=== PATIENT | female | born 1955 | race Caucasian/White ===

== ENCOUNTER 2017-11-27 08:30 | Inpatient (IN) | payer BC, OTHER ==
[2017-12-23] MEDS ORDERED: Sodium Chloride 0.9% 100 ML ONE (07:21)
[2017-12-23] MEDS ORDERED: CEFAZOLIN/Water 2 GM/20 ML SYRINGE ONE (07:21)
[2017-12-23] MEDS ORDERED: Midazolam HCl 2 mg/2 ml Vial ONE (07:22)
[2017-12-23] MEDS ORDERED: Fentanyl 100 MCG/2 ML VIAL ONE ×4 (07:22→11:07)
[2017-12-23] MEDS ORDERED: traMADol HCl 50 MG TAB PO PRN ×3 (11:00→11:03)
[2017-12-23] MEDS ORDERED: Zolpidem Tartrate 5 MG TAB PO PRN ×3 (11:00→12:35)
[2017-12-23] MEDS ORDERED: Fentanyl 100 MCG/2 ML VIAL SLOW IVP PRN ×2 (11:00)
[2017-12-23] MEDS ORDERED: diphenhydrAMINE 25 MG CAP PO PRN ×2 (11:00→12:35)
[2017-12-23] MEDS ORDERED: Promethazine HCl 25 MG/ML VIAL IM PRN ×3 (11:00→12:35)
[2017-12-23] MEDS ORDERED: Ondansetron HCl/PF 4 MG/2 ML Vial IVP PRN ×3 (11:00→12:35)
[2017-12-23] MEDS ORDERED: Sodium Chloride 0.9% 1,000 ML IV SCH (11:00)
[2017-12-23] MEDS ORDERED: HYDROcodone/Acetaminophen 5/325 mg Tablet PO PRN ×2 (11:03)
[2017-12-23] MEDS ORDERED: Ropivacaine HCl/PF 250 ML in Premix Bag 1 BAG NERVE BLCK SCH (11:03)
[2017-12-23] MEDS ORDERED: Fentanyl 100 MCG/2 ML VIAL IV PRN (11:03)
[2017-12-23] MEDS ORDERED: Ketorolac Tromethamine 30 MG/ML VIAL ONE (11:07)
[2017-12-23] MEDS ORDERED: HYDROmorphone 2 MG/ML VIAL ONE (11:21)
--- NOTE | 2017-12-23 11:23 | OP ---
DATE OF PROCEDURE: 12/23/2017 PREOPERATIVE DIAGNOSIS: End-stage tricompartmental osteoarthritis, right knee. POSTOPERATIVE DIAGNOSIS: End-stage tricompartmental osteoarthritis, right knee. OPERATIVE PROCEDURE: Cemented cruciate-sparing computer-assisted navigated right total knee arthropl ro[place]. SURGEON: Rafael Desai M.D. COMMERCIAL SINGER: Larry Peng PA-C. ANESTHESIA: General via laryngeal mask airway augmented with indwelling adductor canal block with si ngle shot sciatic block. COMPONENTS USED: [employer] Tri[employer]lon primary cemented cruciate-sparing size 4 femoral comp onent with a primary cemented, size 3 tibial baseplate, 9 mm polyethylene fixed bearing insert, and S 27 patellar button. TOURNIQUET TIME: 59 minutes at 300 mmHg. ESTIMATED BLOOD LOSS: Less than 100 mL. FINDINGS: End-stage severe degenerative tricompartmental disease, bone on bone arthrosis, periarticu lar osteophyte formation, large serous effusion, hypertrophic beefy red synovium. DRAINS: None. SPECIMENS: None. COMPLICATIONS: None. COUNTS: Correct. INDICATIONS FOR SURGERY: Ms. Guerrier is a 62-year-old female, who has had progressive right knee pain and without standing and walking for the last 10-12 years. She has failed conservative management an d elected to proceed with total knee arthroplasty as a definitive treatment of her pain. PROCEDURE IN DETAIL: After informed consent was obtained in the preoperative holding area. The mark ent was taken to the operative suite where general anesthesia was induced. Once adequate level of ge neral anesthesia was obtained, the patient was positioned and a well-padded tourniquet was placed ramonita und the right proximal thigh. The right lower extremity was then prepped and draped in the usual arslan rile fashion. Prior to exsanguination, a time out was called and all members of the surgical team ag gisela upon site, surgeon, and patient. The extremity was then exsanguinated and the tourniquet was ra ised. A midline longitudinal incision was then made directly over the patella extending two fingerbr eadths above the superior pole of the patella and two fingerbreadths inferior to the inferior patella r pole of the patella. Deeper subcutaneous layers were dissected sharply and local bleeding was cont rolled with Bovie electrocautery. A quad tendon longitudinal split was then made sharply and a media n parapatellar arthrotomy was carried out both sharp and with Bovie electrocautery, carried down to o ne fingerbreadth medial to the tibial tubercle. The knee was then placed into flexion and the patell a was everted nicely, and a copious fat pad ectomy was performed allowing for greater exposure of the tibia. The computer-assisted distal femoral fiducial was then placed and pinned firmly, and the dis andrew femoral cutting guide was pinned firmly into place. The oscillating saw was then used to remove the appropriate amount of bone. The 4-in-1 cutting block was then placed on the distal femur and the oscillating saw was used to remove the appropriate amount of bone off of the anterior, posterior, an d chamfer cuts. After completion of the chamfer cuts, the box-cutting guide was placed, malleted fir mly into place and pinned securely, and an osteotome was used to make the distal cut and the oscillat ing saw was then used to make the medial and lateral box cuts. This came out quite nicely and was re moved with Bovie electrocautery, and the oscillating saw was then used to broaden the lateral medial conn of the box cut. After completion of bone cuts, the anterior cruciate ligament was resected sha rply and the posterior cruciate ligament retractor was placed and the tibia was subluxed for better e xposure. Partial meniscectomies were carried out, and the tibial computer-assisted fiducial was pinn ed, and the cutting guide was placed. Oscillating saw was then used to remove the bone with Hohmann retractors used to take care and protect the collateral ligaments. After the tibial resection was pe rformed, a laminar senior loan processor was placed in between the freshened bone cuts. The knee placed at 90 deg lima and further bilateral meniscectomies were carried out, and the curved osteotome and curettage wa s used to remove any excess bone spurs in the posterior compartment. The trial femoral component, ti bial baseplate were placed with the appropriate polyethylene trial insert with an appropriate polyeth ylene spacer and patellar button. The knee was taken through full range of motion with flexion and e xtension from 0-90 degrees and patellar broach squarely in the trochlea without any squinting or subl uxation noted. The knee was also stable to varus and valgus stressing at 0, 15, 45, and 90 degrees o f flexion. The drawer was negative. All trial components were then removed and the keel punch was u sed to provide the appropriate defect in the tibia with a mallet. The freshened bone cuts were copio usly irrigated with pulsatile lavage of about 1-1/2 liters to remove all excess debris. The freshene d bone cuts were then dried and with suction and lap sponge. The knee was placed in flexion and retr actors were placed to provide access to all bone cuts. Tobramycin impregnated methyl methacrylate ce ment was then placed on the freshened bone cuts and implants which were malleted firmly into place. Curettage and [place] elevators were used to remove any excess bone cement. The knee was placed into f ull extension and the patellar button was placed under compression, and the cement was allowed to cur e. Once completed, the components were again taken through full range of motion and copious irrigati on of the knee was carried out with another liter of normal saline. All components were inspected fu lly with full range of motion and varus and valgus stressing. There was no laxity noted and full exte nsion was observed clinically. Primary closure was accomplished with #2 interrupted Vicryl stitch of the arthrotomy defect. This was oversewn with a #2 running Quill barbed stitch. The subcutaneous l obdulio was then closed with a running 0 barbed Monocryl stitch and skin closure accomplished with a run prem subcuticular 3-0 Monocryl barbed Quill stitch and augmented with cement on the skin. Tourniquet was lowered. Good spontaneous return of distal pulses was noted clinically and a sterile dressing w as applied to the incision. The procedure was terminated without any complications. The patient was awakened in the operative suite and taken to the recovery room in stable condition.
[2017-12-23] MEDS ORDERED: hydrALAZINE 20 MG/ML VIAL ONE (12:22)
[2017-12-23] MEDS ORDERED: Ropivacaine 0.2% 550 ML 550 ML NERVE BLCK SCH (12:30)
[2017-12-23] MEDS ORDERED: fentaNYL Citrate/PF 2,000 MCG in Sodium Chloride 0.9% 60 ML IV PRN (12:35)
[2017-12-23] MEDS ORDERED: diphenhydrAMINE 50 MG/ML VIAL IM/IV PRN (12:35)
[2017-12-23] MEDS ORDERED: Naloxone HCl 0.4 mg/ml Vial IV PRN (12:35)
[2017-12-23] MEDS ORDERED: Bupivacaine 0.25% HCL 30 ML VIAL ONE (13:09)
[2017-12-23] MEDS ORDERED: Ropivacaine 0.5% HCl/PF (150 MG/30 ML VIAL) ONE (13:09)
--- NOTE | 2017-12-23 13:16 | RAD ---
TWO VIEWS RIGHT KNEE: Date: 12-23-17 History: Post-operative right total knee. Comparison: None available. FINDINGS: There are post-surgical changes related to right total knee prosthesis. No hardware complication is s een. Subcutaneous emphysema seen and likely related to recent post-surgical change. IMPRESSION: Post-surgical change related to recent right total knee replacement. POS: MARISOL
[2017-12-23] MEDS: CEFAZOLIN/Water 2 GM/20 ML SYRINGE SLOW IVP SCH ×2 (16:27→22:12)
[2017-12-23] MEDS: Acetaminophen 1,000 MG in Premix Bag 1 BAG IVPB SCH (17:03)
--- NOTE | 2017-12-23 19:06 | PDOC.PN ---
- Subjective Encounter Start Date: 12/23/17 Encounter Start Time: 18:00 Subjective: no c/o sob or chest pain -: has mild pain in right knee, is still numb though - Objective MAR Reviewed: Yes Vital Signs & Weight: Weight Weight 188 lb Phys Exam - Physical Examination HEENT: PERRLA dry mucosa Neck: no JVD, supple Respiratory: no rales, no rhonchi Cardiovascular: RRR, no significant murmur Gastrointestinal: soft, non-tender, positive bowel sounds Musculoskeletal: no edema, pulses present right knee in dressing Neurological: non-focal, moves all 4 limbs Psychiatric: normal affect, A&O x 3 Dx/Plan (1) Status post total knee replacement, right Code(s): Z96.651 - PRESENCE OF RIGHT ARTIFICIAL KNEE JOINT Status: Acute Comment: 12/23/2017 (2) HTN (hypertension) Code(s): I10 - ESSENTIAL (PRIMARY) HYPERTENSION Status: Chronic Qualifiers: Hypertension type: essential hypertension Qualified Code(s): I10 - Essential (primary) hypertension (3) Obesity (BMI 30-39.9) Code(s): E66.9 - OBESITY, UNSPECIFIED Status: Chronic (4) CAD (coronary artery disease) Code(s): I25.10 - ATHSCL HEART DISEASE OF [place] CORONARY ARTERY W/O ANG PCTRS Status: Suspected Qualifiers: Coronary Disease-Associated Artery/Lesion type: [place] artery [place] vs. transplanted heart: [place] heart Associated angina: without angina Qualified Code(s): I25.10 - Atherosclerotic heart disease of [place] coronary artery without angina pectoris (5) Depression Code(s): F32.9 - MAJOR DEPRESSIVE DISORDER, SINGLE EPISODE, UNSPECIFIED Status : Chronic Qualifiers: Depression Type: unspecified Qualified Code(s): F32.9 - Major depressive disorder, single episode, unspecified - Plan on asp bid for dvt prophylaxis -: continue celexa, imdur, lisinopril, iron -: on toradol, fentanyl prn for pain and ropivacaine nr block -: labs in am, will f/u * . Review of Systems - Medications/Allergies Allergies/Adverse Reactions: Allergies Allergy/AdvReac Type Severity Reaction Status Date / Time No Known Allergies Allergy Verified 12/11/17 08:35 Medications: Current Medications Acetaminophen (Tylenol) 650 mg PO Q4H PRN PRN Reason: Headache/Fever or Pain Aspirin (Aspirin) 325 mg PO BID [facility] Cefazolin Sodium (Ancef) 2 gm SLOW IVP Q8HR [facility] Stop: 12/23/17 22:01 Last Admin: 12/23/17 16:27 Dose: 2 gm Citalopram Hydrobromide (Celexa) 40 mg PO DAILY [facility] Diphenhydramine HCl (Benadryl) 25 mg IM/IV Q3H PRN PRN Reason: Itching Diphenhydramine HCl (Benadryl) 25 mg PO Q3H PRN PRN Reason: Itching Ferrous Gluconate (Fergon) 324 mg PO BID-WM [facility] Acetaminophen 1,000 mg/ Device 100 mls @ 400 mls/hr IVPB NOW [facility] Stop: 12/24/17 11:01 Last Admin: 12/23/17 17:03 Dose: Not Given Sodium Chloride (Normal Saline 0.9%) 1,000 mls @ 0 mls/hr IV .Q0M [facility] Ropivacaine (Ropivacaine 0.2% 550 Ml) 550 mls @ 0 mls/hr NERVE BLCK INF [facility] Fentanyl Citrate 2,000 mcg/ (Sodium Chloride) 100 mls @ 0 mls/hr IV INF PRN PRN Reason: Pain Iron/Minerals/Multivitamins (Theragran M) 1 tab PO DAILY [facility] Isosorbide Mononitrate (Imdur Er) 30 mg PO DAILY [facility] Ketorolac Tromethamine (Toradol) 30 mg IVP Q6H PRN PRN Reason: Moderate Pain 4-6 Stop: 12/26/17 12:36 Lisinopril (Zestril) 10 mg PO DAILY [facility] Naloxone HCl (Narcan) 0.2 mg IV Q5MIN PRN PRN Reason: RR <8 or pt obtun/unarousable Ondansetron HCl (Zofran) 4 mg IVP Q6H PRN PRN Reason: Nausea/Vomiting Promethazine HCl (Phenergan) 12.5 mg IM Q4H PRN PRN Reason: Nausea/Vomiting Senna/Docusate Sodium (Senokot S) 2 tab PO BID [facility] Simvastatin (Zocor) 20 mg PO HS [facility] Sodium Chloride (Flush - Normal Saline) 10 ml IVF Q12HR [facility] Sodium Chloride (Flush - Normal Saline) 10 ml IVF PRN PRN PRN Reason: Saline Flush Zolpidem Tartrate (Ambien) 5 mg PO HSPRN PRN PRN Reason: Insomnia
[2017-12-23 19:29] VITALS: BMI 36.3
[2017-12-23] MEDS: Simvastatin 20 MG TAB PO SCH (20:39)
[2017-12-23] MEDS: Aspirin 325 MG TAB PO SCH (20:39)
--- NOTE | 2017-12-23 23:24 | CON ---
DATE OF CONSULTATION: 12/23/2017 CHIEF COMPLAINT: 1. Status post right knee and right knee replacement today. 2. Hypertension. 3. Consult requested for the medical management of the patient's history of hypertension. HISTORY OF PRESENT ILLNESS: This is a 62-year-old female who was electively admitted for right knee total replacement. The patient is now status post right knee replacement today. We were consulted f or the management of patient's history of hypertension. PAST MEDICAL HISTORY: Right knee arthritis, hypertension. PAST SURGICAL HISTORY: Not significant except for today's right total knee replacement. ALLERGIES: NKDA. REVIEW OF SYSTEMS: Constitutional: Complaints of right knee pain, but patient just walked with the physical therapist today from the bed to the door. HEENT: No complaints of eye pain or eye discharg e. No complaints of nose or nasal discharge, no sore throat, no ear pain or ear discharge. Cardiova scular: No complaints of chest pain or palpitation. Respiratory: No complaints of shortness of emiliana ath, wheezes or rales. Musculoskeletal: +4 right knee pain status post surgery. Neurologic: No co mplaints of any focal deficits. No complaints of motor or sensory loss. PHYSICAL EXAMINATION: VITAL SIGNS: Blood pressure 140/78, heart rate 76, respiratory rate 18, pulse ox within normal limit s on room air. CONSTITUTIONAL: Vital signs are reviewed. Patient is complaining of right knee pain, but well contr olled with the pain medication. HEENT: Normocephalic, atraumatic head. Eye examination is within normal limits. Pupil is equally r ound and reactive to light. Extraocular muscles are within normal limits. External ear and canal wi th tympanic membranes within normal limits. There is no discharge. Trachea is midline. There is no cervical lymphadenopathy. No tenderness and range of motions of the neck is intact. respiratory and chest. Respiratory: Respiratory and chest examination is within normal limits. Goo d air entry bilaterally. No wheezes or rales. Cardiovascular: Regular rate and rhythm. No murmurs . Musculoskeletal: Right knee, status post surgery covered with dressing. Neurologic: Cranial ner ves intact. No focal deficit noticed. Motor strength is within normal limits. Sensation is within normal limits. Skin: Within normal limits with no rashes or discoloration. ASSESSMENT AND PLAN: 1. Hypertension. Restart patient's home medications, lisinopril and isosorbide nitrate. 2. Hyperlipidemia. Restart patient's simvastatin. 3. Status post right knee replacement, pain control and continue with PT according to surgeon's advi ce. 4. Symptomatic treatment as required.
[2017-12-24 07:24] LABS: #Lymphocytes 1.6 thou/uL (1.20-3.40); #Monocytes 1.3 thou/uL (0.11-0.59); #Neutrophils 7.3 thou/uL (1.40-6.50); %Basophils 0.1 % (0.0-1.0); %Eosinophils 0.3 % (0.0-10.0); %Lymphocytes 15.9 % (21.0-51.0); %Monocytes 12.9 % (0.0-10.0); %Neutrophils 70.8 % (42.0-75.0); Hemoglobin 12.5 g/dL (12.0-16.0); Mean Corpuscular HGB CONC 34.2 g/dL (32.0-36.0); Mean Corpuscular Hemoglobin 29.7 pg (27.0-31.0); Mean Corpuscular Volume 86.9 fL (78.0-98.0); Mean Platelet Volume 7.1 fL (7.4-10.4); Platelet Count 229 thou/uL (130-400); RBC Distribution Width 12.9 % (11.5-14.5); Red Blood Cell (RBC) Count 4.21 mill/uL (4.20-5.40); White Blood Cell (WBC) Count 10.3 thou/uL (4.8-10.8)
[2017-12-24] MEDS: Lisinopril 10 MG TAB PO SCH (07:38)
[2017-12-24] MEDS: Ferrous Gluconate 324 MG TAB PO SCH ×2 (07:47→18:57)
[2017-12-24] MEDS: Aspirin 325 MG TAB PO SCH ×2 (07:47→21:02)
[2017-12-24] MEDS: Citalopram 20 MG TAB PO SCH (07:47)
[2017-12-24] MEDS: Ketorolac Tromethamine 30 MG/ML VIAL IVP PRN ×2 (07:48→16:10)
[2017-12-24] MEDS: Senokot S 8.6-50 MG TAB PO SCH ×2 (07:48→21:03)
[2017-12-24] MEDS: Multivitamin W/ Minerals 1 TAB PO SCH (07:48)
[2017-12-24] MEDS: Acetaminophen 325 MG TAB PO PRN ×2 (07:55→15:18)
[2017-12-24] MEDS ORDERED: fentaNYL Citrate/PF 2,000 MCG in Sodium Chloride 0.9% 60 ML IV PRN (11:18)
--- NOTE | 2017-12-24 11:34 | PDOC.PN ---
- Subjective Encounter Start Date: 12/24/17 Encounter Start Time: 09:00 Subjective: no sob or chest pain -: has pain in right knee -: ambulated around 40ft yesterday post op - Objective MAR Reviewed: Yes Vital Signs & Weight: Vital Signs (12 hours) Temp Pulse Resp BP Pulse Ox 12/24/17 07:38 98.5 F 85 14 179/109 H 100 12/24/17 03:51 98.2 F 81 16 174/102 H 98 12/23/17 23:46 97.8 F 88 20 158/89 H 97 Weight Weight 180 lb I&O: 12/23/17 12/24/17 12/25/17 06:59 06:59 06:59 Intake Total 810 Output Total 1250 Balance -440 Result Diagrams: 12/24/17 07:14 Phys Exam - Physical Examination HEENT: PERRLA, moist MMs Neck: no JVD, supple Respiratory: no wheezing, no rales Cardiovascular: RRR, no significant murmur Gastrointestinal: soft, non-tender, positive bowel sounds Musculoskeletal: pulses present Neurological: non-focal, moves all 4 limbs Psychiatric: normal affect, A&O x 3 Dx/Plan (1) Status post total knee replacement, right Code(s): Z96.651 - PRESENCE OF RIGHT ARTIFICIAL KNEE JOINT Status: Acute Comment: 12/23/2017 (2) HTN (hypertension) Code(s): I10 - ESSENTIAL (PRIMARY) HYPERTENSION Status: Chronic Qualifiers: Hypertension type: essential hypertension Qualified Code(s): I10 - Essential (primary) hypertension (3) Obesity (BMI 30-39.9) Code(s): E66.9 - OBESITY, UNSPECIFIED Status: Chronic (4) CAD (coronary artery disease) Code(s): I25.10 - ATHSCL HEART DISEASE OF [place] CORONARY ARTERY W/O ANG PCTRS Status: Suspected Qualifiers: Coronary Disease-Associated Artery/Lesion type: [place] artery [place] vs. transplanted heart: [place] heart Associated angina: without angina Qualified Code(s): I25.10 - Atherosclerotic heart disease of [place] coronary artery without angina pectoris (5) Depression Code(s): F32.9 - MAJOR DEPRESSIVE DISORDER, SINGLE EPISODE, UNSPECIFIED Status : Chronic Qualifiers: Depression Type: unspecified Qualified Code(s): F32.9 - Major depressive disorder, single episode, unspecified - Plan hemostable -: on asp bid, lisinopril, oral iron, celexa and imdur -: fentanyl, toradol prn -: ambulate per ortho advice -: will sign off, please recall prn * . Review of Systems - Medications/Allergies Allergies/Adverse Reactions: Allergies Allergy/AdvReac Type Severity Reaction Status Date / Time No Known Allergies Allergy Verified 12/11/17 08:35 Medications: Current Medications Acetaminophen (Tylenol) 650 mg PO Q4H PRN PRN Reason: Headache/Fever or Pain Last Admin: 12/24/17 07:55 Dose: 650 mg Aspirin (Aspirin) 325 mg PO BID [facility] Last Admin: 12/24/17 07:47 Dose: 325 mg Citalopram Hydrobromide (Celexa) 40 mg PO DAILY [facility] Last Admin: 12/24/17 07:47 Dose: 40 mg Diphenhydramine HCl (Benadryl) 25 mg IM/IV Q3H PRN PRN Reason: Itching Diphenhydramine HCl (Benadryl) 25 mg PO Q3H PRN PRN Reason: Itching Ferrous Gluconate (Fergon) 324 mg PO BID-WM [facility] Last Admin: 12/24/17 07:47 Dose: 324 mg Sodium Chloride (Normal Saline 0.9%) 1,000 mls @ 0 mls/hr IV .Q0M [facility] Ropivacaine (Ropivacaine 0.2% 550 Ml) 550 mls @ 0 mls/hr NERVE BLCK INF [facility] Fentanyl Citrate 2,000 mcg/ (Sodium Chloride) 100 mls @ 0 mls/hr IV INF PRN PRN Reason: Pain Iron/Minerals/Multivitamins (Theragran M) 1 tab PO DAILY [facility] Last Admin: 12/24/17 07:48 Dose: 1 tab Isosorbide Mononitrate (Imdur Er) 30 mg PO DAILY [facility] Last Admin: 12/24/17 07:47 Dose: 30 mg Ketorolac Tromethamine (Toradol) 30 mg IVP Q6H PRN PRN Reason: Moderate Pain 4-6 Stop: 12/26/17 12:36 Last Admin: 12/24/17 07:48 Dose: 30 mg Lisinopril (Zestril) 10 mg PO DAILY [facility] Last Admin: 12/24/17 07:38 Dose: 10 mg Morphine Sulfate (Ms Contin) 30 mg PO Q12HR [facility] Naloxone HCl (Narcan) 0.2 mg IV Q5MIN PRN PRN Reason: RR <8 or pt obtun/unarousable Ondansetron HCl (Zofran) 4 mg IVP Q6H PRN PRN Reason: Nausea/Vomiting Promethazine HCl (Phenergan) 12.5 mg IM Q4H PRN PRN Reason: Nausea/Vomiting Senna/Docusate Sodium (Senokot S) 2 tab PO BID [facility] Last Admin: 12/24/17 07:48 Dose: 2 tab Simvastatin (Zocor) 20 mg PO HS [facility] Last Admin: 12/23/17 20:39 Dose: 20 mg Sodium Chloride (Flush - Normal Saline) 10 ml IVF Q12HR [facility] Last Admin: 12/24/17 10:31 Dose: Not Given Sodium Chloride (Flush - Normal Saline) 10 ml IVF PRN PRN PRN Reason: Saline Flush Zolpidem Tartrate (Ambien) 5 mg PO HSPRN PRN PRN Reason: Insomnia
--- NOTE | 2017-12-24 11:36 | PRG ---
DATE OF SERVICE: 12/24/2017 SUBJECTIVE: Chey is a 62-year-old female who is postop day #1 from right total knee arthroplasty. She is uncomfortable this morning, but she is ready for therapy. She is alert. OBJECTIVE: VITAL SIGNS: Temperature 98.5, pulse 85, respiratory rate 14 and unlabored, O2 saturations 100% on r oom air, blood pressure is little high at 179/109. I will check on her blood pressure medications. GENERAL: She is alert, oriented to person, place, time, and situation. Nonfocal and appropriate wit h examiner. EXTREMITIES: Incision is clean without strikethrough. ASSESSMENT: A 62-year-old female postop day #1 right total knee arthroplasty. PLAN: 1. Continue current care. Blood pressure control, I think it has more to do with pain, but we will see. I will give consideration to clonidine, defer to medical management for this. 2. Probable home discharge tomorrow. She has a strong family support unit.
[2017-12-24] MEDS: Acetaminophen 1,000 MG in Premix Bag 1 BAG IVPB SCH (12:37)
[2017-12-24] MEDS: Morphine ER 30 MG TAB PO SCH (21:02)
[2017-12-24] MEDS: Simvastatin 20 MG TAB PO SCH (21:03)
--- NOTE | 2017-12-24 21:59 | PDOC.PN ---
- Subjective Encounter Start Date: 12/24/17 Encounter Start Time: 12:00 - Objective Vital Signs & Weight: Vital Signs (12 hours) Temp Pulse Resp BP BP Pulse Ox 12/24/17 21:02 96 12/24/17 21:01 99.2 F 98 22 H 182/90 H 96 12/24/17 15:48 98.7 F 92 24 H 177/91 H 98 12/24/17 11:45 98.0 F 75 16 137/80 99 Weight Weight 180 lb I&O: 12/23/17 12/24/17 12/25/17 06:59 06:59 06:59 Intake Total 810 Output Total 1250 Balance -440 Result Diagrams: 12/24/17 07:14 Dx/Plan - Plan * . Review of Systems - Medications/Allergies Allergies/Adverse Reactions: Allergies Allergy/AdvReac Type Severity Reaction Status Date / Time No Known Allergies Allergy Verified 12/11/17 08:35 Medications: Current Medications Acetaminophen (Tylenol) 650 mg PO Q4H PRN PRN Reason: Headache/Fever or Pain Last Admin: 12/24/17 15:18 Dose: 650 mg Aspirin (Aspirin) 325 mg PO BID [facility] Last Admin: 12/24/17 21:02 Dose: 325 mg Citalopram Hydrobromide (Celexa) 40 mg PO DAILY [facility] Last Admin: 12/24/17 07:47 Dose: 40 mg Diphenhydramine HCl (Benadryl) 25 mg IM/IV Q3H PRN PRN Reason: Itching Diphenhydramine HCl (Benadryl) 25 mg PO Q3H PRN PRN Reason: Itching Ferrous Gluconate (Fergon) 324 mg [facility] BID[facility] Last Admin: 12/24/17 18:57 Dose: Not Given Sodium Chloride (Normal Saline 0.9%) 1,000 mls @ 0 mls/hr IV .Q0M [facility] Ropivacaine (Ropivacaine 0.2% 550 Ml) 550 mls @ 0 mls/hr NERVE BLCK INF [facility] Fentanyl Citrate 2,000 mcg/ (Sodium Chloride) 100 mls @ 0 mls/hr IV INF PRN PRN Reason: Pain Last Admin: 12/24/17 16:21 Dose: 100 mls Iron/Minerals/Multivitamins (Theragran M) 1 tab PO DAILY [facility] Last Admin: 12/24/17 07:48 Dose: 1 tab Isosorbide Mononitrate (Imdur Er) 30 mg PO DAILY [facility] Last Admin: 12/24/17 07:47 Dose: 30 mg Ketorolac Tromethamine (Toradol) 30 mg IVP Q6H PRN PRN Reason: Moderate Pain 4-6 Stop: 12/26/17 12:36 Last Admin: 12/24/17 16:10 Dose: 30 mg Lisinopril (Zestril) 10 mg PO DAILY [facility] Last Admin: 12/24/17 07:38 Dose: 10 mg Morphine Sulfate (Ms Contin) 30 mg PO Q12HR [facility] Last Admin: 12/24/17 21:02 Dose: 30 mg Naloxone HCl (Narcan) 0.2 mg IV Q5MIN PRN PRN Reason: RR <8 or pt obtun/unarousable Ondansetron HCl (Zofran) 4 mg IVP Q6H PRN PRN Reason: Nausea/Vomiting Promethazine HCl (Phenergan) 12.5 mg IM Q4H PRN PRN Reason: Nausea/Vomiting Senna/Docusate Sodium (Senokot S) 2 tab PO BID [facility] Last Admin: 12/24/17 21:03 Dose: 2 tab Simvastatin (Zocor) 20 mg PO HS [facility] Last Admin: 12/24/17 21:03 Dose: 20 mg Sodium Chloride (Flush - Normal Saline) 10 ml IVF Q12HR [facility] Last Admin: 12/24/17 21:14 Dose: Not Given Sodium Chloride (Flush - Normal Saline) 10 ml IVF PRN PRN PRN Reason: Saline Flush Zolpidem Tartrate (Ambien) 5 mg PO HSPRN PRN PRN Reason: Insomnia
[2017-12-24] MEDS ORDERED: hydrALAZINE 20 MG/ML VIAL SLOW IVP PRN (22:33)
[2017-12-25] MEDS: Acetaminophen 325 MG TAB PO PRN ×2 (03:03→16:19)
[2017-12-25] MEDS: Ketorolac Tromethamine 30 MG/ML VIAL IVP PRN ×2 (03:03→16:20)
[2017-12-25] MEDS: Multivitamin W/ Minerals 1 TAB PO SCH (09:28)
[2017-12-25] MEDS: Ferrous Gluconate 324 MG TAB PO SCH ×2 (09:28→17:27)
[2017-12-25] MEDS: Aspirin 325 MG TAB PO SCH ×2 (09:28→21:34)
[2017-12-25] MEDS: Senokot S 8.6-50 MG TAB PO SCH ×2 (09:29→21:34)
[2017-12-25] MEDS: Citalopram 20 MG TAB PO SCH (09:29)
[2017-12-25] MEDS: Lisinopril 10 MG TAB PO SCH (09:29)
[2017-12-25] MEDS: Morphine ER 30 MG TAB PO SCH ×2 (09:37→21:34)
--- NOTE | 2017-12-25 10:20 | PDOC.PN ---
- Subjective Encounter Start Date: 12/25/17 Encounter Start Time: 09:00 Subjective: feels better, pain is getting controlled on meds -: has ambulated 160ft with PT post op -: no sob/chest pain/palp - Objective MAR Reviewed: Yes Vital Signs & Weight: Vital Signs (12 hours) Temp Pulse Resp BP BP Pulse Ox 12/25/17 09:29 175/81 H 12/25/17 08:00 100 12/25/17 07:40 98.1 F 88 18 175/81 H 100 12/25/17 03:06 99.2 F 103 H 24 H 147/75 H 97 12/24/17 23:45 99.2 F 102 H 22 H 149/80 H 99 12/24/17 22:41 93 185/98 H Weight Weight 180 lb I&O: 12/24/17 12/25/17 12/26/17 06:59 06:59 06:59 Intake Total 810 Output Total 1250 3350 Balance -440 -3350 Result Diagrams: 12/24/17 07:14 Phys Exam - Physical Examination HEENT: PERRLA, moist MMs Neck: no JVD, supple Respiratory: no wheezing, no rales Cardiovascular: RRR, no significant murmur Gastrointestinal: soft, non-tender, positive bowel sounds Musculoskeletal: no edema, pulses present Neurological: non-focal, moves all 4 limbs Psychiatric: normal affect, A&O x 3 Dx/Plan (1) Status post total knee replacement, right Code(s): Z96.651 - PRESENCE OF RIGHT ARTIFICIAL KNEE JOINT Status: Acute Comment: 12/23/2017 (2) HTN (hypertension) Code(s): I10 - ESSENTIAL (PRIMARY) HYPERTENSION Status: Chronic Qualifiers: Hypertension type: essential hypertension Qualified Code(s): I10 - Essential (primary) hypertension (3) Obesity (BMI 30-39.9) Code(s): E66.9 - OBESITY, UNSPECIFIED Status: Chronic (4) CAD (coronary artery disease) Code(s): I25.10 - ATHSCL HEART DISEASE OF [place] CORONARY ARTERY W/O ANG PCTRS Status: Suspected Qualifiers: Coronary Disease-Associated Artery/Lesion type: [place] artery Circle vs. transplanted heart: [place] heart Associated angina: without angina Qualified Code(s): I25.10 - Atherosclerotic heart disease of [place] coronary artery without angina pectoris (5) Depression Code(s): F32.9 - MAJOR DEPRESSIVE DISORDER, SINGLE EPISODE, UNSPECIFIED Status : Chronic Qualifiers: Depression Type: unspecified Qualified Code(s): F32.9 - Major depressive disorder, single episode, unspecified - Plan continue asp bid, celexa, imdur, lisinopril and oral iron -: toradol, fentanyl prn -: likely dc plan in am with HH and PT per patient -: hemostable * . Review of Systems - Medications/Allergies Allergies/Adverse Reactions: Allergies Allergy/AdvReac Type Severity Reaction Status Date / Time No Known Allergies Allergy Verified 12/11/17 08:35 Medications: Current Medications Acetaminophen (Tylenol) 650 mg PO Q4H PRN PRN Reason: Headache/Fever or Pain Last Admin: 12/25/17 03:03 Dose: 650 mg Aspirin (Aspirin) 325 mg PO BID [facility] Last Admin: 12/25/17 09:28 Dose: 325 mg Citalopram Hydrobromide (Celexa) 40 mg PO DAILY [facility] Last Admin: 12/25/17 09:29 Dose: 40 mg Diphenhydramine HCl (Benadryl) 25 mg IM/IV Q3H PRN PRN Reason: Itching Diphenhydramine HCl (Benadryl) 25 mg PO Q3H PRN PRN Reason: Itching Ferrous Gluconate (Fergon) 324 mg PO BID-[facility] Last Admin: 12/25/17 09:28 Dose: 324 mg Hydralazine HCl (Apresoline) 10 mg SLOW IVP Q4H PRN PRN Reason: SBP > 180, DBP > 100 Last Admin: 12/24/17 22:41 Dose: 10 mg Sodium Chloride (Normal Saline 0.9%) 1,000 mls @ 0 mls/hr IV .Q0M [facility] Ropivacaine (Ropivacaine 0.2% 550 Ml) 550 mls @ 0 mls/hr NERVE BLCK INF [facility] Fentanyl Citrate 2,000 mcg/ (Sodium Chloride) 100 mls @ 0 mls/hr IV INF PRN PRN Reason: Pain Last Admin: 12/24/17 16:21 Dose: 100 mls Iron/Minerals/Multivitamins (Theragran M) 1 tab PO DAILY [facility] Last Admin: 12/25/17 09:28 Dose: 1 tab Isosorbide Mononitrate (Imdur Er) 30 mg PO DAILY [facility] Last Admin: 12/25/17 09:29 Dose: 30 mg Ketorolac Tromethamine (Toradol) 30 mg IVP Q6H PRN PRN Reason: Moderate Pain 4-6 Stop: 12/26/17 12:36 Last Admin: 12/25/17 03:03 Dose: 30 mg Lisinopril (Zestril) 10 mg PO DAILY [facility] Last Admin: 12/25/17 09:29 Dose: 10 mg Morphine Sulfate (Ms Contin) 30 mg PO Q12HR [facility] Last Admin: 12/25/17 09:37 Dose: 30 mg Naloxone HCl (Narcan) 0.2 mg IV Q5MIN PRN PRN Reason: RR <8 or pt obtun/unarousable Ondansetron HCl (Zofran) 4 mg IVP Q6H PRN PRN Reason: Nausea/Vomiting Promethazine HCl (Phenergan) 12.5 mg IM Q4H PRN PRN Reason: Nausea/Vomiting Senna/Docusate Sodium (Senokot S) 2 tab PO BID [facility] Last Admin: 12/25/17 09:29 Dose: 2 tab Simvastatin (Zocor) 20 mg PO HS [facility] Last Admin: 12/24/17 21:03 Dose: 20 mg Sodium Chloride (Flush - Normal Saline) 10 ml IVF Q12HR [facility] Last Admin: 12/25/17 09:35 Dose: Not Given Sodium Chloride (Flush - Normal Saline) 10 ml IVF PRN PRN PRN Reason: Saline Flush Zolpidem Tartrate (Ambien) 5 mg PO HSPRN PRN PRN Reason: Insomnia
[2017-12-25] MEDS: Simvastatin 20 MG TAB PO SCH (21:34)
[2017-12-26] MEDS: Ketorolac Tromethamine 30 MG/ML VIAL IVP PRN (02:09)
[2017-12-26] MEDS: Acetaminophen 325 MG TAB PO PRN (02:09)
[2017-12-26] MEDS: Citalopram 20 MG TAB PO SCH (10:05)
[2017-12-26] MEDS: Aspirin 325 MG TAB PO SCH (10:05)
[2017-12-26] MEDS: Ferrous Gluconate 324 MG TAB PO SCH (10:05)
[2017-12-26] MEDS: Lisinopril 10 MG TAB PO SCH (10:06)
[2017-12-26] MEDS: Morphine ER 30 MG TAB PO SCH (10:06)
[2017-12-26] MEDS: Senokot S 8.6-50 MG TAB PO SCH (10:07)
[2017-12-26] MEDS: Multivitamin W/ Minerals 1 TAB PO SCH (10:07)
[2017-12-26 12:24] VITALS: BP 140/70; TEMP 98.1
== END 2017-12-26 14:10 | disposition home or self-care (01) | DRG 470 ==
LOC: SURG A 12-23 06:17 → SURG B 12-23 14:19
PROVIDERS: ADMIT Orthopaedic Surgery; ATTEND Orthopaedic Surgery
PROC: 0SRC0J9 Replacement of Right Knee Joint with Synthetic Substitute, Cemented, Open Approach (ICD-10-PCS; principal; 2017-12-23)
DX: M17.11 Unilateral primary osteoarthritis, right knee (principal); I10 Essential (primary) hypertension; E66.9 Obesity, unspecified; I25.10 Atherosclerotic heart disease of native coronary artery without angina pectoris; F32.9 Major depressive disorder, single episode, unspecified; Z68.36 Body mass index [BMI] 36.0-36.9, adult; E78.5 Hyperlipidemia, unspecified
CPT/HCPCS: 36415; 80048; 85025; 85610; 86850; 86900; 86901; A4216; A4306; C1713; C1776; G8978-GP-CL; G8979-GP-CJ; J0131; J0360; J1170; J1885; J2250; J2795; J3010; J7050

== ENCOUNTER 2017-12-11 08:06 | Outpatient (CLI) | payer BC, OTHER ==
[2017-12-11 10:27] LABS: Bilirubin Negative (Negative); Blood, Urine Negative (Negative); Clarity CLEAR (Clear); Glucose, Urine (Dipstick) Negative (Negative); Leukocyte Negative (Negative); Nitrite Negative (Negative); Protein, Urine (Dipstick) Negative (Neg-Trace); Specific Gravity, Urine 1.017 (1.002-1.036); pH, Urine 7.5 (5.0-9.0)
[2017-12-11 10:30] LABS: Bacteria/HPF None Seen HPF (None Seen); Hyaline Casts/LPF 0-3 HYALINE CAST LPF (0-3 Hyaline); RBC/HPF 0-3 HPF (0-3); Squamous Epithelial 0-3 HPF (0-3); WBC/HPF None Seen HPF (0-3)
--- NOTE | 2017-12-11 11:00 | RAD ---
PA AND LATERAL CHEST: History: Pre-operative evaluation. FINDINGS: The heart size is normal. The aorta is tortuous. The lungs are well expanded without lobar consolidat ion, pneumothoraces or pleural effusions. There are degenerative changes in the spine. IMPRESSION: No radiographic evidence of acute cardiopulmonary process. POS: OFF
--- NOTE | 2017-12-11 17:09 | EKG ---
Test Reason : Blood Pressure : / mmHG Vent. Rate : 056 BPM Atrial Rate : 056 BPM P-R Int : 158 ms QRS Dur : 076 ms QT Int : 434 ms P-R-T Axes : 031 -10 -04 degrees QTc Int : 418 ms Sinus bradycardia Anteroseptal infarct , age undetermined cannot be excluded Abnormal ECG Confirmed by KEYLA FAULKNER ([id number]) on 12/11/2017 5:09:22 PM Referred By: SP Confirmed By:KEYLA FAULKNER
== END 2017-12-11 08:07 | disposition home or self-care (01) ==
LOC: LABBT 08:06
PROVIDERS: ATTEND Orthopaedic Surgery
DX: Z01.818 Encounter for other preprocedural examination (principal); M17.11 Unilateral primary osteoarthritis, right knee
CPT/HCPCS: 71046; 81001; 87081; 93005; 93010

== ENCOUNTER 2017-12-22 15:44 | Outpatient (CLI) | payer BC ==
[2017-12-22 16:17] LABS: #Basophils 0.1 thou/uL (0.0-0.2); #Eosinphils 0.3 thou/uL (0.0-0.7); #Lymphocytes 2.3 thou/uL (1.20-3.40); #Monocytes 0.7 thou/uL (0.11-0.59); #Neutrophils 3.4 thou/uL (1.40-6.50); %Basophils 1.3 % (0.0-1.0); %Eosinophils 4.4 % (0.0-10.0); %Lymphocytes 34.4 % (21.0-51.0); %Monocytes 10.1 % (0.0-10.0); %Neutrophils 49.8 % (42.0-75.0); Hemoglobin 12.8 g/dL (12.0-16.0); Mean Corpuscular HGB CONC 34.3 g/dL (32.0-36.0); Mean Corpuscular Hemoglobin 29.8 pg (27.0-31.0); Mean Corpuscular Volume 87.1 fL (78.0-98.0); Mean Platelet Volume 7.1 fL (7.4-10.4); Platelet Count 269 thou/uL (130-400); White Blood Cell (WBC) Count 6.8 thou/uL (4.8-10.8)
[2017-12-22 16:22] LABS: Prothrombin Time 13.6 SEC (12.0-14.7)
[2017-12-22 16:34] LABS: Anion Gap 11 mmol/L (10-20); BUN (Urea Nitrogen) 22 mg/dL (9.8-20.1); Calc. Creatinine Clearance 0 mL/min (70-130); Calcium 9.1 mg/dL (7.8-10.44); Carbon Dioxide 27 mmol/L (23-31); Chloride 106 mmol/L (98-107); Estimated GFR-MDRD 87; Glucose 127 mg/dL (80-115); Potassium 3.9 mmol/L (3.5-5.1); Sodium 140 mmol/L (136-145)
== END 2017-12-22 15:45 | disposition home or self-care (01) ==
LOC: LABBT 15:44
PROVIDERS: ATTEND Orthopaedic Surgery
DX: Z01.812 Encounter for preprocedural laboratory examination (principal); M17.11 Unilateral primary osteoarthritis, right knee
CPT/HCPCS: 80048; 85025; 85610; 86850; 86900; 86901

== ENCOUNTER 2019-10-21 09:30 | Inpatient (IN) | payer MEDICARE, BC ==
[2019-11-09] MEDS ORDERED: Tranexamic Acid 1,000 MG/10 ML VIAL ONE (05:59)
[2019-11-09] MEDS ORDERED: Vancomycin 1.5 GRAM/300 ML BAG ONE (05:59)
[2019-11-09] MEDS ORDERED: Sodium Chloride 0.9% 100 ML ONE (05:59)
[2019-11-09] MEDS ORDERED: Fentanyl 100 MCG/2 ML VIAL ONE ×3 (06:32→10:47)
[2019-11-09] MEDS ORDERED: Lidocaine 1% (PF) 30 ML VIAL ONE (06:32)
[2019-11-09] MEDS ORDERED: Midazolam HCl 2 mg/2 ml Vial ONE (06:32)
[2019-11-09] MEDS ORDERED: Acetaminophen 325 MG TAB PO PRN ×2 (06:43→06:52)
[2019-11-09] MEDS ORDERED: Zolpidem Tartrate 5 MG TAB PO PRN ×2 (06:43→06:52)
[2019-11-09] MEDS ORDERED: Ropivacaine HCl/PF 250 ML in Premix Bag 1 BAG NERVE BLCK SCH (06:43)
[2019-11-09] MEDS ORDERED: traMADol HCl 50 MG TAB PO PRN (06:43)
[2019-11-09] MEDS ORDERED: Promethazine HCl 25 MG/ML VIAL IM PRN ×2 (06:43→06:52)
[2019-11-09] MEDS ORDERED: HYDROcodone/Acetaminophen 10/325 mg Tablet PO PRN ×2 (06:43)
[2019-11-09] MEDS ORDERED: Ondansetron PF 4 MG/2 ML Vial IVP PRN ×2 (06:43→06:52)
[2019-11-09] MEDS ORDERED: diphenhydrAMINE 25 MG CAP PO PRN (06:52)
[2019-11-09] MEDS ORDERED: MORPHINE 30 MG PO PRN (06:54)
[2019-11-09] MEDS ORDERED: Aspirin 325 MG TAB PO SCH (09:00)
[2019-11-09] MEDS ORDERED: hydrALAZINE 20 MG/ML VIAL ONE (09:36)
[2019-11-09] MEDS ORDERED: Labetalol HCl 100 MG/20 ML VIAL ONE (10:06)
--- NOTE | 2019-11-09 10:10 | RAD ---
XR Knee Rt 2 View HISTORY: Total knee replacement FINDINGS: There are recent postoperative changes of total knee arthroplasty in good position and alignment.
[2019-11-09] MEDS ORDERED: Ondansetron PF 4 MG/2 ML Vial ONE (10:16)
[2019-11-09] MEDS ORDERED: PROPOFOL 200 MG/20 ML VIAL ONE (10:16)
[2019-11-09] MEDS ORDERED: Bupivacaine HCl 0.5%/Epinephrine 1:200,000/PF 30 ml Vial ONE (10:16)
[2019-11-09] MEDS ORDERED: Ropivacaine 0.2% HCl/PF (40 MG/20 ML VIAL) ONE (10:16)
[2019-11-09] MEDS ORDERED: Dexamethasone 20 MG/5 ML VIAL ONE (10:16)
[2019-11-09] MEDS ORDERED: Metoprolol Tartrate 5 MG/5 ML VIAL ONE (10:16)
[2019-11-09] MEDS ORDERED: Lidocaine 1% PF 5 ML VIAL ONE (10:16)
[2019-11-09] MEDS: Sodium Chloride 0.9% 1,000 ML IV SCH ×3 (11:30→23:04)
[2019-11-09] MEDS: Lisinopril 10 MG TAB PO SCH (11:59)
[2019-11-09] MEDS: Aspirin 81 mg Enteric Coated Tablet PO SCH ×2 (11:59→21:03)
[2019-11-09] MEDS: Carvedilol 3.125 MG TAB PO SCH ×2 (11:59→21:02)
[2019-11-09] MEDS: Citalopram 20 MG TAB PO SCH (11:59)
[2019-11-09] MEDS: Cholecalciferol 1,000 UNITS (25 MCG) TAB PO SCH (11:59)
--- NOTE | 2019-11-09 12:37 | OP ---
DATE OF PROCEDURE: 11/09/2019 This is Larry Peng PA-C dictating a report for Rafael Desai MD. 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 PROCEDURE PERFORMED: Revision bicompartmental (femoral and tibial components) right total knee arthroplasty. MISSILE FACILITIES REPAIRER: Larry Peng PA-C ANESTHESIA: General via LMA, augmented with adductor canal block and a single- shot sciatic block. COMPONENTS USED: [employer] Triathlon size 3 total stabilized cemented femoral component with a 14 x 100 mm stem, a 19-mm polyethylene fixed bearing insert, a size 3 universal tibial baseplate with a 12 x 50 mm stabilizing stem. TOURNIQUET TIME: 64 minutes. ESTIMATED BLOOD LOSS: Less than 100. FINDINGS: Aseptic loosening with debonding between femoral and tibial components and cement mantle as well as hypertrophic changes in synovium and medial collateral laxity secondary to a fall, which preceded onset of symptoms, minimal softening of bones at the apices of the femoral condyles, but MCL laxity is noted. Patella was fixated solid. DRAINS: None. SPECIMENS: None. COMPLICATIONS: None. COUNTS: Correct. INDICATIONS FOR SURGERY: Chey is a 64-year-old female who has had right knee pain for the last 6 to 7 months after a fall, which preceded onset of discomfort and pain and laxity. She has failed conservative management with passage of time and ultimately has complained bitterly of the amplification of pain in the right knee. Therefore, she has elected to proceed with revision and stabilization of this process. PROCEDURE IN DETAIL: After informed consent was obtained in the preoperative holding area, the patient was taken to the operative suite and positioned appropriately. General anesthesia was induced and LMA was placed and secured. After this, the right lower extremity was then prepped and draped in the usual sterile fashion and a well-padded tourniquet was placed over the right proximal thigh. Prior to exsanguination, a multidisciplinary time-out was called and confirmed by all members of the team. After this completed, the extremity was exsanguinated by the executive sales assistant. The tourniquet was raised and was remained from incision to final closure. After the exsanguination, a midline incision was made using the patient's prior surgical scar and this was not extended. We sharply undermined and the executive sales assistant performed a medial parapatellar arthrotomy sharply with good thick tissue beds noted. No evidence of infection was identified. We then directed our attention to undermining old synovium and subtotal synovectomy was performed and cleaning of the medial and lateral gutters was also performed with rongeur and Bovie electrocautery. The patella was released and we were allowed to ruddy it without any problem. Knee was placed in flexion. Appropriate Homans were placed medially and laterally to protect the collateral ligaments by the executive sales assistant. Attention was then turned to removing the metallic prosthesis. We used a combination of oscillating saw and punches to debond the femoral component; in this case It was quite easy to perform. An osteotome was then used by the executive sales assistant to remove the polyethylene fixed bearing insert, which allowed for further removal of the femoral implant. We then used a series of gouges and osteotomes to remove the remaining cement. This was also cleaned up with Bovie electrocautery and [place] rongeur and curettage. Attention was then turned to tibial baseplate removal, which also was removed quite easily due to what appeared to be a septic debonding at the metallic and cement interface. We used a series of rongeurs and osteotomes to remove the remaining cement. Further synovectomy was performed to allow for full visualization of the tibia and femur. Intramedullary omar was left in place and the tibial cutting guide was pinned at the appropriate depth for a 2 mm transtibial resection of freshened bone. This was also removed by the executive sales assistant with curettage and rongeur. The trial baseplate was placed and a keel punch and Boss reamer was then used to over-ream the proximal canal. We chose the appropriate length of stem and firmly malleted the trial baseplate into place. Attention was then turned to femoral preparation. Flexion gap was measured up to the appropriate length and femoral cutting guide was then malleted into place with good flexion and extension by trial. It was pinned and the appropriate cuts were made for augmentation as well as the intercondylar box cut. We then removed all cutting blocks and placed the femoral trial and the appropriate sized polyethylene trial and found to have excellent range of motion with good stable drawer. Stable to varus and valgus stressing in full extension was noted with good stable extension with varus and valgus stressing. Trials were removed. The entire wound was copiously irrigated by the executive sales assistant with pulsatile lavage and dried. Retractors were placed by the executive sales assistant to allow for cement to be placed on tibia 1st and the tibial permanent baseplate was malleted into place. All excess cement was removed. We then placed the femoral component, it was cemented and malleted squarely into place with removal of excess cement. Polyethylene insert was then malleted in with good stable varus and valgus stressing and the metallic retaining pin was then placed. We did not need to remove the patella as it was solidly cemented without any problems. The wound was copiously irrigated again with pulsatile lavage. All debris removed. Closure required both surgeon and surgeon executive sales assistant working in concert. Primary closure was accomplished by the executive sales assistant with interrupted #2 Vicryl for approximation. This was oversewn with #2 Quill. Subcutaneous layer was closed with a running 0 Quill and subcuticular layer was closed with a running subcuticular 2-0 Quill. The skin was reapproximated with cement. A sterile dressing was applied. Tourniquet was dropped and the patient 's LMA was removed in the operative suite and she was taken to recovery room in stable condition. Job ID: [id number] [facility]
[2019-11-09] MEDS: Ketorolac Tromethamine 30 MG/ML VIAL IVP SCH ×3 (13:10→23:02)
[2019-11-09] MEDS: CEFAZOLIN 2 GM in Premix Bag 1 BAG IVPB SCH ×2 (13:11→21:03)
[2019-11-09] MEDS: Atorvastatin Calcium 10 MG TAB PO SCH (21:02)
[2019-11-09] MEDS: Morphine ER 30 MG TAB PO PRN (21:06)
[2019-11-09] MEDS: traMADol HCl 50 MG TAB PO PRN (23:03)
[2019-11-10] MEDS: Ketorolac Tromethamine 30 MG/ML VIAL IVP SCH ×4 (05:13→23:04)
[2019-11-10] MEDS: Fentanyl 100 MCG/2 ML VIAL IV PRN ×4 (05:14→23:16)
[2019-11-10 05:22] LABS: Hemoglobin 11.3 g/dL (12.0-16.0); Mean Corpuscular Hemoglobin 26.3 pg (27.0-31.0); Mean Corpuscular Volume 84.9 fL (78.0-98.0); Mean Platelet Volume 7.7 fL (7.4-10.4); Platelet Count 224 thou/uL (130-400); RBC Distribution Width 13.2 % (11.5-14.5); White Blood Cell (WBC) Count 10.1 thou/uL (4.8-10.8)
[2019-11-10] MEDS: Citalopram 20 MG TAB PO SCH (08:57)
[2019-11-10] MEDS: Senokot S 8.6-50 MG TAB PO SCH ×2 (08:57→19:37)
[2019-11-10] MEDS: Cholecalciferol 1,000 UNITS (25 MCG) TAB PO SCH (08:57)
[2019-11-10] MEDS: Lisinopril 10 MG TAB PO SCH (08:57)
[2019-11-10] MEDS: Multivitamin W/ Minerals 1 TAB PO SCH (08:57)
[2019-11-10] MEDS: Ferrous Gluconate 324 MG TAB PO SCH ×2 (08:58→18:04)
[2019-11-10] MEDS: Aspirin 81 mg Enteric Coated Tablet PO SCH ×2 (08:58→19:38)
[2019-11-10] MEDS: Carvedilol 3.125 MG TAB PO SCH ×2 (08:58→19:38)
[2019-11-10] MEDS ORDERED: Prevnar 13-Val Conj/PF 0.5 ML SYRINGE IM ONE (09:00)
[2019-11-10] MEDS: Morphine ER 30 MG TAB PO PRN (09:51)
[2019-11-10] MEDS ORDERED: HYDROcodone/Acetaminophen 10/325 mg Tablet PO PRN (11:57)
[2019-11-10 12:06] VITALS: BMI 38.0
--- NOTE | 2019-11-10 12:20 | PRG ---
DATE OF SERVICE: SUBJECTIVE: Chey is a 64-year-old female, postop day 1 from revision right total knee arthroplasty. She is doing relatively well. She has no complaints of pain and she is tolerating the surgery very well. We discussed her operative findings at length. OBJECTIVE: VITAL SIGNS: Temperature 98.1, pulse 73, respiratory rate 18, blood pressure 176/82. GENERAL: She is alert and oriented to person, place, time, situation, responsive and appropriate with examiner. EXTREMITIES: Incision is clean. No strike through and she is neurovascularly intact in the right lower extremity. LABORATORY DATA: Hemoglobin and hematocrit 11.3 and 36.6. IMPRESSION: A 64-year-old female, postop day 1, revision of right total knee arthroplasty, doing well. PLAN: Continue current care. Expected discharge home tomorrow. Job ID: [id number]
[2019-11-10] MEDS: HYDROcodone/Acetaminophen 10/325 mg Tablet PO PRN ×2 (12:58→19:38)
[2019-11-10] MEDS: Sodium Chloride 0.9% 1,000 ML IV SCH (15:49)
[2019-11-10] MEDS: Atorvastatin Calcium 10 MG TAB PO SCH (19:38)
[2019-11-10] MEDS: traMADol HCl 50 MG TAB PO PRN (22:06)
[2019-11-11] MEDS: HYDROcodone/Acetaminophen 10/325 mg Tablet PO PRN ×4 (00:26→17:45)
[2019-11-11] MEDS: Sodium Chloride 0.9% 1,000 ML IV SCH ×3 (00:29→19:26)
[2019-11-11] MEDS: Fentanyl 100 MCG/2 ML VIAL IV PRN (01:18)
[2019-11-11] MEDS: Ketorolac Tromethamine 30 MG/ML VIAL IVP SCH (05:01)
[2019-11-11] MEDS: Morphine ER 30 MG TAB PO PRN ×2 (05:41→20:14)
[2019-11-11] MEDS: Aspirin 81 mg Enteric Coated Tablet PO SCH ×2 (08:31→20:11)
[2019-11-11] MEDS: Multivitamin W/ Minerals 1 TAB PO SCH ×2 (08:31→08:33)
[2019-11-11] MEDS: Ferrous Gluconate 324 MG TAB PO SCH ×2 (08:31→16:22)
[2019-11-11] MEDS: Senokot S 8.6-50 MG TAB PO SCH ×2 (08:31→20:10)
[2019-11-11] MEDS: CeleCOXIB 100 MG CAP PO SCH (08:32)
[2019-11-11] MEDS: Lisinopril 10 MG TAB PO SCH (08:32)
[2019-11-11] MEDS: Carvedilol 3.125 MG TAB PO SCH ×2 (08:33→20:11)
[2019-11-11] MEDS: Citalopram 20 MG TAB PO SCH (08:33)
[2019-11-11] MEDS: traMADol HCl 50 MG TAB PO PRN (08:36)
[2019-11-11] MEDS: Cholecalciferol 1,000 UNITS (25 MCG) TAB PO SCH (08:41)
--- NOTE | 2019-11-11 09:12 | PRG ---
DATE OF SERVICE: 11/11/2019 SUBJECTIVE: Chey is a 64-year-old female postop day 2 from a revision right total knee arthroplasty. She is doing relatively well. She does complain of pain; however, she was able to ambulate 160 feet yesterday evening. She does complain of having some elevated blood pressure last night. OBJECTIVE: VITAL SIGNS: Temperature 98.4, pulse 77, respiratory rate 16, and blood pressure 149/82. GENERAL: She is alert, responsive, and appropriate. EXTREMITIES: Visual inspection of the right lower extremity demonstrates incision to be clean. No erythema. No strike through. She is neurovascularly intact. LABORATORY DATA: Hemoglobin and hematocrit 11.3 and 36.6. IMPRESSION: 1. Postop day 2, revision right total knee arthroplasty, doing relatively well. 2. Elevated hypertension, uncontrolled. PLAN: 1. Consult with hospitalist for evaluation and echo management of elevated blood pressure. 2. Give consideration to discharge tomorrow. Job ID: [id number]
[2019-11-11] MEDS: Atorvastatin Calcium 10 MG TAB PO SCH (20:11)
--- NOTE | 2019-11-11 23:23 | CON ---
DATE OF CONSULTATION: DATE OF ADMISSION: 11/11/2019. TIME OF ASSESSMENT: 2000 hours. REASON FOR CONSULTATION: Medical management. PRIMARY CARE PHYSICIAN: Dr. Bong Grimes. HISTORY OF PRESENT ILLNESS: Ms. Lay is a pleasant 64-year-old woman, who is status post a right total knee arthroplasty with known history of hyperlipidemia and hypertension, referred to us for medical management. The patient reports having mild discomfort in her knee, but states it is well controlled with pain medications. She has otherwise been feeling well and is without any complaints. Reports having a good appetite. Has been tolerating oral intake and denies any nausea or vomiting. Has not had any headache or dizziness. No changes with her vision. No chest pain, palpitations, or shortness of breath. No abdominal pain. Reports urinating frequently, but no dysuria. Has not had any diarrhea or constipation. All other review of systems are negative. PAST MEDICAL HISTORY: 1. Hypertension. 2. Osteoarthritis. 3. Hyperlipidemia. 4. Depression. 5. Chronic knee pain. PAST SURGICAL HISTORY: 1. Hysterectomy. 2. Lumbar spine surgery with hardware in 2013. 3. Right total knee replacement on December 23, 2017. 4. 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 FAMILY HISTORY: Father is diagnosed with diabetes, hypertension, and heart disease. He is . Mother also , diagnosed with diabetes, hypertension, and heart disease. She has a history of diabetes, hypertension, and asthma in her siblings. SOCIAL HISTORY: The patient denies any alcohol consumption or illicit drug use. She does report smoking occasionally. ALLERGIES: NO KNOWN DRUG ALLERGIES. CURRENT MEDICATIONS: 1. Aspirin. 2. Carvedilol 3.125 mg p.o. b.i.d. 3. Celebrex 200 mg p.o. daily. 4. Vitamin D3 1000 units p.o. daily. 5. Citalopram 40 mg p.o. daily. 6. Imdur ER 30 mg p.o. daily. 7. Lisinopril 10 mg p.o. daily. 8. Morphine 30 mg p.o. b.i.d. 9. Simvastatin 20 mg p.o. at bedtime. PHYSICAL EXAMINATION: GENERAL: The patient appears well-developed, well-nourished. She is in no acute distress. She is resting comfortably in bed. VITAL SIGNS: Temperature 97.9, pulse 74, respirations 18, O2 saturation 97% on room air, and blood pressure 147/81. HEENT: Normocephalic and atraumatic. Pupils are equal, round, and reactive to light. Sclerae icterus. Oropharynx is clear. NECK: Supple. LUNGS: Clear to auscultation bilaterally without any wheezes, rales, or rhonchi. CARDIAC: Regular rate and rhythm. ABDOMEN: Soft, obese, nontender, and nondistended. Normoactive bowel sounds present. No guarding or rigidity. No renal angle tenderness. EXTREMITIES: Dressing in place in right knee. Mechanical SCD in place to the left lower extremity. No pitting edema. No erythema. SKIN: Warm and dry. LABORATORY DATA: Laboratory data obtained on 11/10/2019. White count 10.1, hemoglobin 11.3, and platelets 224. Basic metabolic panel done on 11/04/2019 showed a sodium of 130, potassium 4.4, BUN 13, creatinine 0.66, GFR 90, glucose 97, and calcium 9.2. Urinalysis done on November 04, 2019, was unremarkable. COVID testing done at that time was negative as well. IMAGING DATA: Knee x-ray on 11/09/2019 showed postoperative changes of total knee arthroplasty in good position and alignment. IMPRESSION AND PLAN: Ms. Lay is a pleasant 64-year-old woman, who has undergone a revision/right total knee arthroplasty after having aseptic loosening. The patient tolerated procedure well, and her pain has been under good control. She was referred to us for medical management. She has a history of hypertension, hyperlipidemia, osteoarthritis, and depression. Her home medications have already been reconciled. It appears from the chart that there are plans to discharge her tomorrow in the morning. The patient currently without complaints and blood pressure under control. We will obtain routine labs in the a.m. Disposition as per primary team. We will continue to follow this patient with you while she is here. Thank you for this consultation. Case discussed with attending, who agrees with plan of care as described above. Job ID: [id number]
[2019-11-12 00:18] VITALS: TEMP 98
[2019-11-12] MEDS: HYDROcodone/Acetaminophen 10/325 mg Tablet PO PRN ×2 (02:51→09:36)
[2019-11-12] MEDS: Sodium Chloride 0.9% 1,000 ML IV SCH (03:41)
[2019-11-12 06:17] LABS: #Eosinphils 0.4 thou/uL (0.0-0.7); #Lymphocytes 1.6 thou/uL (1.20-3.40); #Monocytes 0.9 thou/uL (0.11-0.59); #Neutrophils 6.1 thou/uL (1.40-6.50); %Basophils 0.4 % (0.0-1.0); %Eosinophils 4.4 % (0.0-10.0); %Lymphocytes 17.4 % (21.0-51.0); %Monocytes 9.9 % (0.0-10.0); %Neutrophils 67.9 % (42.0-75.0); Mean Corpuscular HGB CONC 32.9 g/dL (32.0-36.0); Mean Corpuscular Hemoglobin 27.9 pg (27.0-31.0); Mean Corpuscular Volume 84.9 fL (78.0-98.0); Mean Platelet Volume 7.8 fL (7.4-10.4); Platelet Count 220 thou/uL (130-400); RBC Distribution Width 13.1 % (11.5-14.5); Red Blood Cell (RBC) Count 3.94 mill/uL (4.20-5.40)
[2019-11-12 06:38] LABS: Anion Gap 9 mmol/L (10-20); BUN (Urea Nitrogen) 11 mg/dL (9.8-20.1); Calc. Creatinine Clearance 122 mL/min (70-130); Calcium 8.9 mg/dL (7.8-10.44); Carbon Dioxide 32 mmol/L (23-31); Chloride 100 mmol/L (98-107); Estimated GFR-MDRD Greater than 90; Glucose 115 mg/dL (80-115); Potassium 3.8 mmol/L (3.5-5.1); Sodium 137 mmol/L (136-145)
[2019-11-12] MEDS: Lisinopril 10 MG TAB PO SCH (09:18)
[2019-11-12] MEDS: Cholecalciferol 1,000 UNITS (25 MCG) TAB PO SCH (09:20)
[2019-11-12] MEDS: CeleCOXIB 100 MG CAP PO SCH (09:20)
[2019-11-12] MEDS: Multivitamin W/ Minerals 1 TAB PO SCH (09:20)
[2019-11-12] MEDS: Aspirin 81 mg Enteric Coated Tablet PO SCH (09:20)
[2019-11-12] MEDS: Citalopram 20 MG TAB PO SCH (09:20)
[2019-11-12] MEDS: Ferrous Gluconate 324 MG TAB PO SCH (09:20)
[2019-11-12] MEDS: Carvedilol 3.125 MG TAB PO SCH (09:21)
[2019-11-12] MEDS: Senokot S 8.6-50 MG TAB PO SCH (09:21)
[2019-11-12 09:22] VITALS: BP 170/73
--- NOTE | 2019-11-15 09:36 | DIS ---
DATE OF ADMISSION: 11/09/2019 DATE OF DISCHARGE: 11/12/2019 This is Carlos Alberto Marinelli PA-C dictating a report for Rafael Desai MD. PREOPERATIVE DIAGNOSIS: Hardware failure, right total knee. POSTOPERATIVE DIAGNOSIS: Hardware failure, right total knee. PROCEDURE PERFORMED: The patient underwent a right total knee revision. HOSPITAL COURSE: Hospital stay was fairly unremarkable. The patient worked with Staff, Physical Therapy, and Occupational Therapy on the [facility] floor and did well. Of course, there was some postop pain, but the patient did well with this p.o. intake. Everything else was okay. DISCHARGE CONDITION: Good/stable. DISPOSITION: Home with family. FOLLOWUP: Follow up would be in 2 to 4 weeks or sooner if there are problems and/or concerns. DISCHARGE MEDICATIONS: Given with usage instructions. Job ID: [id number]
== END 2019-11-12 10:36 | disposition home or self-care (01) | DRG 468 ==
LOC: SURG A 11-09 05:38 → SURG B 11-09 11:41
PROVIDERS: ADMIT Orthopaedic Surgery; ATTEND Orthopaedic Surgery
PROC: 0SPC0JZ Removal of Synthetic Substitute from Right Knee Joint, Open Approach (ICD-10-PCS; principal; 2019-11-09)
PROC: 0SRC0J9 Replacement of Right Knee Joint with Synthetic Substitute, Cemented, Open Approach (ICD-10-PCS; 2019-11-09)
DX: T84.032A Mechanical loosening of internal right knee prosthetic joint, initial encounter (principal); Y83.8 Other surgical procedures as the cause of abnormal reaction of the patient, or of later complication, without mention of misadventure at the time of the procedure; K21.9 Gastro-esophageal reflux disease without esophagitis; E78.5 Hyperlipidemia, unspecified; F41.9 Anxiety disorder, unspecified; F32.9 Major depressive disorder, single episode, unspecified; I25.10 Atherosclerotic heart disease of native coronary artery without angina pectoris; I12.9 Hypertensive chronic kidney disease with stage 1 through stage 4 chronic kidney disease, or unspecified chronic kidney disease; N18.9 Chronic kidney disease, unspecified; E66.9 Obesity, unspecified; G89.29 Other chronic pain; G47.33 Obstructive sleep apnea (adult) (pediatric); Z88.7 Allergy status to serum and vaccine; Z90.710 Acquired absence of both cervix and uterus; Z68.38 Body mass index [BMI] 38.0-38.9, adult
CPT/HCPCS: 36415; 80048; 85025; 85027; C1713; C1776; J0360; J0670; J0690; J1100; J1885; J2001; J2250; J2405; J2704; J2795; J3010; J3370; J3490; J7620

== ENCOUNTER 2019-11-04 06:30 | Outpatient (CLI) | payer MEDICARE, BC, OTHER ==
[2019-11-04 11:47] LABS: Prothrombin Time 12.8 sec (12.0-14.7)
[2019-11-04 11:51] LABS: #Basophils 0.1 thou/uL (0.0-0.2); #Eosinphils 0.4 thou/uL (0.0-0.7); #Lymphocytes 1.8 thou/uL (1.20-3.40); #Monocytes 0.7 thou/uL (0.11-0.59); #Neutrophils 3.4 thou/uL (1.40-6.50); %Basophils 0.9 % (0.0-1.0); %Lymphocytes 28.1 % (21.0-51.0); %Neutrophils 53.1 % (42.0-75.0); Hemoglobin 13.3 g/dL (12.0-16.0); Mean Corpuscular HGB CONC 33.3 g/dL (32.0-36.0); Mean Corpuscular Hemoglobin 28.3 pg (27.0-31.0); Mean Platelet Volume 7.9 fL (7.4-10.4); Platelet Count 292 thou/uL (130-400); RBC Distribution Width 13.4 % (11.5-14.5); Red Blood Cell (RBC) Count 4.69 mill/uL (4.20-5.40); White Blood Cell (WBC) Count 6.4 thou/uL (4.8-10.8)
[2019-11-04 11:56] LABS: Anion Gap 10 mmol/L (10-20); BUN (Urea Nitrogen) 13 mg/dL (9.8-20.1); Calc. Creatinine Clearance 0 mL/min (70-130); Calcium 9.2 mg/dL (7.8-10.44); Carbon Dioxide 32 mmol/L (23-31); Chloride 100 mmol/L (98-107); Estimated GFR-MDRD 90; Glucose 97 mg/dL (80-115); Potassium 4.4 mmol/L (3.5-5.1); Sodium 138 mmol/L (136-145)
[2019-11-04 11:58] LABS: Bacteria/HPF None Seen HPF (None Seen); Bilirubin Negative (Negative); Blood, Urine Negative (Negative); Clarity Clear (Clear); Glucose, Urine (Dipstick) Normal (Negative); Ketone, Urine Negative (Negative); Leukocyte Negative Leu/uL (Negative); Nitrite Negative (Negative); Protein, Urine (Dipstick) Negative (Neg-Trace); RBC/HPF 0-3 HPF (0-3); Specific Gravity, Urine 1.016 (1.002-1.036); Squamous Epithelial 0-3 HPF (0-3); Urobilinogen Normal mg/dL (Less than 2); WBC/HPF 0-3 HPF (0-3)
[2019-11-05 11:44] LABS: SARS-CoV-2 MS2 Positive; SARS-CoV-2 N Gene Negative; SARS-CoV-2 S Gene Negative; SARS-CoV-2 orf1ab Negative
== END 2019-11-04 06:31 | disposition home or self-care (01) ==
LOC: LABBT 06:30
PROVIDERS: ATTEND Orthopaedic Surgery
DX: Z01.818 Encounter for other preprocedural examination (principal); Z11.59 Encounter for screening for other viral diseases; T84.092D Other mechanical complication of internal right knee prosthesis, subsequent encounter
CPT/HCPCS: 80048; 81001; 85025; 85610; 87081; 93005; U0003; 87635; 93010

== ENCOUNTER 2020-03-10 11:04 | Outpatient (CLI) | payer MEDICARE, BC ==
[2020-03-10 12:02] LABS: #Basophils 0.1 10x3/uL (0.0-0.2); #Eosinphils 0.4 10x3/uL (0.0-0.5); #Monocytes 0.6 10x3/uL (0.0-1.1); %Basophils 0.6 % (0.0-2.0); %Eosinophils 4.5 % (0.0-6.0); %Lymphocytes 25.3 % (18.0-47.0); %Monocytes 7.3 % (0.0-10.0); Hemoglobin 12.3 g/dL (12.0-16.0); Mean Corpuscular HGB CONC 31.9 G/DL (32.0-36.0); Mean Corpuscular Volume 81.4 fl (80.0-100.0); Mean Platelet Volume 10.3 fl (7.4-10.4); Platelet Count 324 10x3/uL (130-400); RBC Distribution Width 14.4 % (11.5-14.5); Red Blood Cell (RBC) Count 4.73 10x6/uL (3.90-5.20)
[2020-03-10 12:09] LABS: Prothrombin Time 10.8 sec (9.5-12.1)
[2020-03-10 12:16] LABS: Anion Gap 11 mmol/L (10-20); BUN (Urea Nitrogen) 19 mg/dL (9.8-20.1); Calc. Creatinine Clearance 0 mL/min (70-130); Calcium 9.1 mg/dL (7.8-10.44); Carbon Dioxide 26 mmol/L (23-31); Chloride 103 mmol/L (98-107); Estimated GFR-MDRD 85; Glucose 98 mg/dL (80-115); Potassium 4.3 mmol/L (3.5-5.1); Sodium 136 mmol/L (136-145)
[2020-03-11 11:00] LABS: SARS-CoV-2 MS2 Positive; SARS-CoV-2 N Gene Negative; SARS-CoV-2 S Gene Negative; SARS-CoV-2 by NAA Not Detected (NotDetected); SARS-CoV-2 orf1ab Negative
== END 2020-03-10 11:05 | disposition home or self-care (01) ==
LOC: LABBT 11:04
PROVIDERS: ATTEND Orthopaedic Surgery
DX: Z01.812 Encounter for preprocedural laboratory examination (principal); M17.12 Unilateral primary osteoarthritis, left knee; Z20.828 Contact with and (suspected) exposure to other viral communicable diseases
CPT/HCPCS: 80048; 85025; 85610; 87081; U0003; 87635

== ENCOUNTER 2020-03-10 11:15 | Inpatient (IN) | payer MEDICARE, BC ==
[2020-03-13 09:26] VITALS: BMI 36.3
[2020-03-14] MEDS ORDERED: Fentanyl 100 MCG/2 ML VIAL ONE ×4 (06:09→10:11)
[2020-03-14] MEDS ORDERED: Vancomycin 1.5 GRAM/300 ML BAG ONE (06:24)
[2020-03-14] MEDS ORDERED: Sodium Chloride 0.9% 100 ML ONE (06:24)
[2020-03-14] MEDS ORDERED: Tranexamic Acid 1,000 MG/10 ML VIAL ONE (06:24)
[2020-03-14] MEDS ORDERED: Lidocaine 1% (PF) 30 ML VIAL ONE (06:30)
[2020-03-14] MEDS ORDERED: Midazolam HCl 2 mg/2 ml Vial ONE (06:30)
[2020-03-14] MEDS ORDERED: Acetaminophen 325 MG TAB PO PRN (07:01)
[2020-03-14] MEDS ORDERED: Ondansetron PF 4 MG/2 ML Vial IVP PRN ×2 (07:01→07:15)
[2020-03-14] MEDS ORDERED: Fentanyl 100 MCG/2 ML VIAL SLOW IVP PRN ×3 (07:01→07:10)
[2020-03-14] MEDS ORDERED: diphenhydrAMINE 25 MG CAP PO PRN (07:01)
[2020-03-14] MEDS ORDERED: Promethazine HCl 25 MG/ML VIAL IM PRN ×3 (07:01→08:45)
[2020-03-14] MEDS ORDERED: HYDROcodone/Acetaminophen 10/325 mg Tablet PO PRN ×3 (07:01→07:15)
[2020-03-14] MEDS ORDERED: Zolpidem Tartrate 5 MG TAB PO PRN ×2 (07:01→07:15)
[2020-03-14] MEDS ORDERED: Calcium Carbonate 500 MG ChewTAB PO PRN (07:03)
[2020-03-14] MEDS ORDERED: MORPHINE 30 MG PO PRN (07:03)
[2020-03-14] MEDS ORDERED: traMADol HCl 50 MG TAB PO PRN (07:15)
[2020-03-14] MEDS ORDERED: Ropivacaine HCl/PF 250 ML in Premix Bag 1 BAG NERVE BLCK SCH (07:15)
[2020-03-14] MEDS ORDERED: Ondansetron HCl/PF 4 MG/2 ML Vial IVP PRN (08:45)
[2020-03-14] MEDS ORDERED: Promethazine HCl 25 MG/ML VIAL SLOW IVP PRN (08:45)
--- NOTE | 2020-03-14 08:54 | OP ---
DATE OF PROCEDURE: 03/14/2020 PROCEDURE PERFORMED: Left total knee arthroplasty using Selina triathlon 4 femur, 3 tibia, 9 mm CS X3 polyethylene, A27 patella. SHELF DRIER OPERATOR: Debbie Slater PA-C BLOOD LOSS: Minimal. SPECIMEN: None. DRAINS: None. COMPLICATIONS: None. DESCRIPTION OF PROCEDURE: After appropriate consent was obtained, the patient was taken to the operating room, where spinal anesthesia was induced. The patient received Ancef prior to beginning the surgical procedure. The left leg was placed in the tourniquet and prepped and draped in the usual sterile fashion. After exsanguination, the tourniquet was inflated to 300 mmHg. A longitudinal incision was made over the patella, hemostasis was obtained and dissection was carried down to the retinaculum. The medial parapatellar arthrotomy was performed and the patella was then everted and the knee was flexed. The meniscus tissue was excised. The intramedullary canal was opened with a drill. The distal femoral cutting guide was keyed off the intramedullary guide. The distal femoral cut was made with the oscillating saw after appropriate alignment had been confirmed. The #2 guide was then used to drill holes in the distal femur for placement of further guides. The femur was sized and found to be that the 4 was the most appropriate size. The anterior chamfer and posterior cut were made, followed by the posterior chamber and anterior cut. The 4 femoral trial was placed on the femur and showed good fit. The femoral trial was then removed and attention was then turned to the tibia, where the 3:1 tibial guide was placed. This was aligned using the drill bit along with the malleoli. A 4 mm cut was keyed off the medial side of the tibia. The proximal tibial cutting guide was affixed to bone using drill pins. The Cobra retractors were used to protect the contents of the popliteal canal and an oscillating saw was used to resect the proximal. The tibia was sized and found the 3 was the most appropriate size. A trial reduction was performed, which showed good mediolateral stability and full extension with the 9 mm plastic spacer. The patella was everted and the oscillating saw was used to cut the patella. The osteophytes were removed as needed. The patella was sized and the A27 was found to be the most appropriate size. The patella was then drilled and the A27 patellar button trial was placed on the patella. The knee was put through a range of motion and there was no need for a lateral release. There was good tracking of the patella. After this was complete, the patella trial was removed. The femur was drilled and the proximal tibia was punched with the cruciate chisel. Copious irrigation was then performed over all bone ends. The bones were meticulously dried and free of debris. Tobramycin treated cement was then used to cement in the 3 tibia with a 9 mm spacer, the 4 femur and all-plastic patella. After cement had cured, care was taken to make sure that all extraneous cement had been removed. Copious irrigation was performed again using irrigant and pulsatile lavage. The tracking was checked once again and tracking was appropriate. The Selina drain was placed in the knee. The retinaculum was repaired using #1 Vicryl. The subcutaneous tissues were closed with 2-0 Vicryl and the skin was closed with jojo. A sterile dressing was applied. The drain was connected and the patient was placed in a knee immobilizer. There were no complications. The reading assistant/co-surgeon was present through the entire procedure and was responsible for providing exposure, tissue retraction and any necessary limb or tissue manipulation required to obtain necessary reduction or hardware placement. The reading assistant/co-surgeon also provided bleeding control, tissue closure, and suturing in conjunction with the primary surgeon. Job ID: [id number]
[2020-03-14] MEDS ORDERED: Labetalol HCl 100 MG/20 ML VIAL ONE (09:43)
--- NOTE | 2020-03-14 09:44 | RAD ---
LEFT KNEE 2 VIEWS: HISTORY: Postop total knee. COMPARISON: None. FINDINGS: Satisfactory appearance left total knee arthroplasty and patellar resurfacing. Expected postoperativ e gas and edema. IMPRESSION: Satisfactory postoperative appearance. POS: [facility]
[2020-03-14] MEDS ORDERED: hydrALAZINE 20 MG/ML VIAL ONE (10:19)
[2020-03-14] MEDS ORDERED: Ropivacaine 0.2% HCl/PF (40 MG/20 ML VIAL) ONE (11:42)
[2020-03-14] MEDS ORDERED: Dexamethasone 20 MG/5 ML VIAL ONE (11:42)
[2020-03-14] MEDS ORDERED: Bupivacaine HCl 0.5%/Epinephrine 1:200,000/PF 30 ml Vial ONE (11:42)
[2020-03-14] MEDS ORDERED: Ondansetron PF 4 MG/2 ML Vial ONE (11:42)
[2020-03-14] MEDS ORDERED: Ketorolac Tromethamine 30 MG/ML VIAL ONE (11:42)
[2020-03-14] MEDS ORDERED: PROPOFOL 200 MG/20 ML VIAL ONE (11:42)
[2020-03-14] MEDS: Sodium Chloride 0.9% 1,000 ML IV SCH ×2 (11:46→16:23)
[2020-03-14] MEDS: Citalopram 20 MG TAB PO SCH (11:47)
[2020-03-14] MEDS: Carvedilol 3.125 MG TAB PO SCH ×2 (11:47→21:18)
[2020-03-14] MEDS: Cholecalciferol 1,000 UNITS (25 MCG) TAB PO SCH (11:47)
[2020-03-14] MEDS: Aspirin 81 mg Enteric Coated Tablet PO SCH ×2 (11:47→21:18)
[2020-03-14] MEDS: Lisinopril 10 MG TAB PO SCH (11:48)
[2020-03-14] MEDS: Ketorolac Tromethamine 30 MG/ML VIAL IVP SCH ×3 (12:07→23:49)
[2020-03-14] MEDS: HYDROcodone/Acetaminophen 10/325 mg Tablet PO PRN ×2 (12:48→18:31)
[2020-03-14] MEDS: CEFAZOLIN 2 GM in Premix Bag 1 BAG IVPB SCH ×2 (13:56→21:18)
[2020-03-14] MEDS: Atorvastatin Calcium 10 MG TAB PO SCH (21:18)
[2020-03-15] MEDS: Sodium Chloride 0.9% 1,000 ML IV SCH ×3 (00:34→21:34)
[2020-03-15] MEDS: Ketorolac Tromethamine 30 MG/ML VIAL IVP SCH ×3 (05:50→17:10)
[2020-03-15 06:36] LABS: Hemoglobin 10.2 g/dL (12.0-16.0); Mean Corpuscular HGB CONC 32.3 g/dL (32.0-36.0); Mean Corpuscular Hemoglobin 26.4 pg (27.0-31.0); Mean Corpuscular Volume 81.8 fL (78.0-98.0); Mean Platelet Volume 7.9 fL (7.4-10.4); Platelet Count 231 thou/uL (130-400); RBC Distribution Width 13.7 % (11.5-14.5); Red Blood Cell (RBC) Count 3.88 mill/uL (4.20-5.40); White Blood Cell (WBC) Count 9.2 thou/uL (4.8-10.8)
[2020-03-15] MEDS: Multivitamin W/ Minerals 1 TAB PO SCH (08:16)
[2020-03-15] MEDS: Citalopram 20 MG TAB PO SCH (08:16)
[2020-03-15] MEDS: Cholecalciferol 1,000 UNITS (25 MCG) TAB PO SCH (08:16)
[2020-03-15] MEDS: Carvedilol 3.125 MG TAB PO SCH ×2 (08:16→20:28)
[2020-03-15] MEDS: Senokot S 8.6-50 MG TAB PO SCH ×2 (08:16→20:27)
[2020-03-15] MEDS: Aspirin 81 mg Enteric Coated Tablet PO SCH ×2 (08:17→20:27)
[2020-03-15] MEDS: Ferrous Gluconate 324 MG TAB PO SCH ×2 (08:17→17:10)
[2020-03-15] MEDS: Lisinopril 10 MG TAB PO SCH (08:17)
[2020-03-15] MEDS: HYDROcodone/Acetaminophen 10/325 mg Tablet PO PRN ×3 (08:18→20:30)
[2020-03-15] MEDS ORDERED: FLU VACC QS2020-21(65YR UP)/PF 240 MCG/0.7 ML SYRINGE IM ONE (09:00)
[2020-03-15] MEDS: traMADol HCl 50 MG TAB PO PRN ×2 (10:28→18:04)
[2020-03-15] MEDS: Atorvastatin Calcium 10 MG TAB PO SCH (20:27)
[2020-03-16] MEDS: HYDROcodone/Acetaminophen 10/325 mg Tablet PO PRN ×3 (00:05→14:06)
[2020-03-16] MEDS: Ketorolac Tromethamine 30 MG/ML VIAL IVP SCH ×2 (00:06→06:05)
[2020-03-16] MEDS: traMADol HCl 50 MG TAB PO PRN (02:33)
[2020-03-16 05:29] LABS: Hemoglobin 10.8 g/dL (12.0-16.0); Mean Corpuscular HGB CONC 33.5 g/dL (32.0-36.0); Mean Corpuscular Hemoglobin 27.6 pg (27.0-31.0); Mean Corpuscular Volume 82.6 fL (78.0-98.0); Mean Platelet Volume 7.9 fL (7.4-10.4); Platelet Count 222 thou/uL (130-400); RBC Distribution Width 13.8 % (11.5-14.5); Red Blood Cell (RBC) Count 3.91 mill/uL (4.20-5.40); White Blood Cell (WBC) Count 9.5 thou/uL (4.8-10.8)
[2020-03-16] MEDS: Lisinopril 10 MG TAB PO SCH (06:06)
[2020-03-16] MEDS: Carvedilol 3.125 MG TAB PO SCH (06:06)
[2020-03-16] MEDS: Cholecalciferol 1,000 UNITS (25 MCG) TAB PO SCH (08:31)
[2020-03-16] MEDS: Multivitamin W/ Minerals 1 TAB PO SCH (08:31)
[2020-03-16] MEDS: Aspirin 81 mg Enteric Coated Tablet PO SCH (08:31)
[2020-03-16] MEDS: Senokot S 8.6-50 MG TAB PO SCH (08:31)
[2020-03-16] MEDS: Citalopram 20 MG TAB PO SCH (08:31)
[2020-03-16] MEDS: Ferrous Gluconate 324 MG TAB PO SCH (08:32)
[2020-03-16] MEDS: Sodium Chloride 0.9% 1,000 ML IV SCH (08:37)
[2020-03-16 11:33] VITALS: BP 151/92; TEMP 98
== END 2020-03-16 14:46 | disposition home or self-care (01) | DRG 470 ==
LOC: SJJU 03-14 05:26 → SURG A 03-14 11:25
PROVIDERS: ADMIT Orthopaedic Surgery; ATTEND Orthopaedic Surgery
PROC: 0SRD0J9 Replacement of Left Knee Joint with Synthetic Substitute, Cemented, Open Approach (ICD-10-PCS; principal; 2020-03-14)
DX: M17.12 Unilateral primary osteoarthritis, left knee (principal); Z20.828 Contact with and (suspected) exposure to other viral communicable diseases; Z23 Encounter for immunization; I10 Essential (primary) hypertension; E78.5 Hyperlipidemia, unspecified; I25.10 Atherosclerotic heart disease of native coronary artery without angina pectoris; Z96.651 Presence of right artificial knee joint; F17.210 Nicotine dependence, cigarettes, uncomplicated; F32.9 Major depressive disorder, single episode, unspecified; Z79.899 Other long term (current) drug therapy; Z79.82 Long term (current) use of aspirin
CPT/HCPCS: 36415; 85027; 90471; 90662; C1713; C1776; G0008; J0360; J0690; J1100; J1885; J2001; J2250; J2405; J2704; J2795; J3010; J3370; J3490

== ENCOUNTER 2022-04-29 10:39 | Outpatient (CLI) | payer MEDICARE, BC | END 2022-04-29 10:40 | disposition home or self-care (01) | LOC: RAD 10:39 | PROVIDERS: ATTEND Neurological Surgery | DX: M48.062 Spinal stenosis, lumbar region with neurogenic claudication (principal); M47.816 Spondylosis without myelopathy or radiculopathy, lumbar region | CPT/HCPCS: 72120 ==

== ENCOUNTER 2022-06-19 16:00 | Inpatient (IN) | payer MEDICARE, BC ==
[2022-06-26 08:38] LABS: SARS-CoV-2 NAA Rapid Test Not Detected (NotDetected)
[2022-06-26] MEDS ORDERED: Vancomycin 1 GM VIAL ONE (08:54)
[2022-06-26] MEDS ORDERED: Sodium Chloride 0.9% 100 ML ONE (09:01)
[2022-06-26] MEDS ORDERED: CEFAZOLIN 2 GM VIAL ONE (09:01)
[2022-06-26] MEDS ORDERED: SUGAMMADEX SODIUM 200 MG/2 ML VIAL ONE ×2 (09:06→11:03)
[2022-06-26] MEDS ORDERED: Fentanyl 250 MCG/5 ML VIAL ONE (09:06)
[2022-06-26] MEDS ORDERED: Dexamethasone 20 MG/5 ML VIAL ONE (09:13)
[2022-06-26] MEDS ORDERED: Lidocaine 1% PF 5 ML VIAL ONE (09:13)
[2022-06-26] MEDS ORDERED: Succinylcholine Chloride 100 MG/5 ML SYRINGE FS ONE (09:13)
[2022-06-26] MEDS ORDERED: PROPOFOL 200 MG/20 ML VIAL ONE (09:13)
[2022-06-26] MEDS ORDERED: Rocuronium Bromide 10 MG/ML (10ML VIAL) ONE (09:13)
[2022-06-26] MEDS ORDERED: Ondansetron PF 4 MG/2 ML Vial ONE (09:13)
[2022-06-26] MEDS ORDERED: diphenhydrAMINE 25 MG CAP PO PRN (09:16)
[2022-06-26] MEDS ORDERED: Milk Of Magnesia 30 ML UDCUP PO PRN (09:16)
[2022-06-26] MEDS ORDERED: Promethazine 25 MG TAB PO PRN (09:16)
[2022-06-26] MEDS ORDERED: Mag-Al 1200 mg/1200 mg/30 ML UDCUP PO PRN (09:16)
[2022-06-26] MEDS ORDERED: FENTANYL 50 MCG/ML 1 ML VIAL SLOW IVP PRN (09:25)
[2022-06-26] MEDS ORDERED: Ipratropium/Albuterol 3 ML NEB ONE (11:21)
[2022-06-26] MEDS ORDERED: HYDROmorphone 0.5 MG/0.5 ML SYRINGE ONE ×4 (11:30→12:05)
[2022-06-26] MEDS ORDERED: HYDROmorphone 2 MG/ML VIAL SLOW IVP PRN (11:35)
[2022-06-26] MEDS ORDERED: Ondansetron HCl/PF 4 MG/2 ML Vial IVP PRN (11:35)
[2022-06-26] MEDS ORDERED: Promethazine HCl 25 MG/ML VIAL IM PRN (11:35)
[2022-06-26 16:00] VITALS: BMI 39.0
[2022-06-26] MEDS: Sodium Chloride 0.9% 1,000 ML IV SCH (16:05)
[2022-06-26] MEDS: CEFAZOLIN 2 GM in Sodium Chloride 0.9% 100 ML IVPB SCH (16:17)
[2022-06-26] MEDS: Carvedilol 3.125 MG TAB PO SCH (16:18)
[2022-06-26] MEDS: traMADol HCl 50 MG TAB PO PRN (16:18)
[2022-06-26] MEDS ORDERED: Fentanyl 100 MCG/2 ML VIAL SLOW IVP PRN (17:30)
[2022-06-26] MEDS: Morphine ER 30 MG TAB PO SCH (19:53)
[2022-06-26] MEDS: hydrALAZINE 20 MG/ML VIAL SLOW IVP PRN (20:30)
[2022-06-26] MEDS: Cyclobenzaprine 10 MG TAB PO PRN (20:56)
[2022-06-26] MEDS: Ondansetron PF 4 MG/2 ML Vial IVP PRN (21:27)
[2022-06-27] MEDS ORDERED: Ondansetron PF 4 MG/2 ML Vial IVP SCH (00:15)
[2022-06-27] MEDS: Sodium Chloride 0.9% 1,000 ML IV SCH ×2 (00:22→13:55)
[2022-06-27] MEDS: CEFAZOLIN 2 GM in Sodium Chloride 0.9% 100 ML IVPB SCH ×3 (00:30→17:59)
[2022-06-27] MEDS: Ondansetron PF 4 MG/2 ML Vial IVP PRN (05:16)
[2022-06-27] MEDS ORDERED: Promethazine HCl 25 MG in Sodium Chloride 0.9% 50 ML IVPB PRN (05:24)
[2022-06-27] MEDS ORDERED: Ondansetron PF 4 MG/2 ML Vial IVP PRN (05:25)
[2022-06-27] MEDS ORDERED: Scopolamine 1.5 mg/72 hour Patch TD SCH (06:00)
[2022-06-27] MEDS: Morphine ER 30 MG TAB PO SCH ×2 (08:16→20:57)
[2022-06-27] MEDS: Carvedilol 3.125 MG TAB PO SCH ×2 (08:17→18:00)
[2022-06-27] MEDS: Citalopram 20 MG TAB PO SCH (08:19)
[2022-06-27] MEDS ORDERED: Lisinopril 10 MG TAB PO SCH (09:00)
[2022-06-27] MEDS: Cyclobenzaprine 10 MG TAB PO PRN (18:08)
[2022-06-27] MEDS: Acetaminophen 325 MG TAB PO PRN (18:41)
[2022-06-27] MEDS: Atorvastatin Calcium 10 MG TAB PO SCH (20:57)
[2022-06-27] MEDS ORDERED: Carvedilol 3.125 MG TAB PO SCH (21:00)
[2022-06-28] MEDS: hydrALAZINE 20 MG/ML VIAL SLOW IVP PRN (00:40)
[2022-06-28] MEDS: CEFAZOLIN 2 GM in Sodium Chloride 0.9% 100 ML IVPB SCH ×3 (00:42→17:13)
[2022-06-28] MEDS: traMADol HCl 50 MG TAB PO PRN ×2 (01:26→19:30)
[2022-06-28] MEDS: Sodium Chloride 0.9% 1,000 ML IV SCH ×2 (02:49→15:30)
[2022-06-28] MEDS: Acetaminophen 325 MG TAB PO PRN (08:12)
[2022-06-28] MEDS: Morphine ER 30 MG TAB PO SCH ×2 (08:12→20:01)
[2022-06-28] MEDS: Carvedilol 3.125 MG TAB PO SCH ×2 (08:14→17:13)
[2022-06-28] MEDS: Citalopram 20 MG TAB PO SCH (08:14)
[2022-06-28] MEDS ORDERED: hydrALAZINE 25 MG TAB PO PRN (08:34)
[2022-06-28] MEDS ORDERED: Lisinopril 10 MG TAB PO SCH ×2 (09:00)
[2022-06-28] MEDS: Senokot S 8.6-50 MG TAB PO SCH ×2 (09:59→20:02)
[2022-06-28 13:01] VITALS: TEMP 98.2
[2022-06-28] MEDS: Atorvastatin Calcium 10 MG TAB PO SCH (20:02)
[2022-06-28 20:23] VITALS: BP 129/68
== END 2022-06-28 20:10 | DRG 460 ==
LOC: SURG A 06-26 06:43 → MSONC 06-26 14:00
PROVIDERS: ADMIT Neurological Surgery; ATTEND Neurological Surgery
PROC: 0SG0071 Fusion of Lumbar Vertebral Joint with Autologous Tissue Substitute, Posterior Approach, Posterior Column, Open Approach (ICD-10-PCS; principal; 2022-06-26)
PROC: 0SG3071 Fusion of Lumbosacral Joint with Autologous Tissue Substitute, Posterior Approach, Posterior Column, Open Approach (ICD-10-PCS; 2022-06-26)
PROC: 00NY0ZZ Release Lumbar Spinal Cord, Open Approach (ICD-10-PCS; 2022-06-26)
PROC: 0QP004Z Removal of Internal Fixation Device from Lumbar Vertebra, Open Approach (ICD-10-PCS; 2022-06-26)
DX: M48.062 Spinal stenosis, lumbar region with neurogenic claudication (principal); M48.07 Spinal stenosis, lumbosacral region; M51.36 Other intervertebral disc degeneration, lumbar region; G89.29 Other chronic pain; I10 Essential (primary) hypertension; Z20.822 Contact with and (suspected) exposure to COVID-19; M81.0 Age-related osteoporosis without current pathological fracture; E78.00 Pure hypercholesterolemia, unspecified; F32.A Depression, unspecified; Z96.653 Presence of artificial knee joint, bilateral; I25.10 Atherosclerotic heart disease of native coronary artery without angina pectoris; Z79.899 Other long term (current) drug therapy; Z79.82 Long term (current) use of aspirin; Z90.710 Acquired absence of both cervix and uterus
CPT/HCPCS: C1713; C1768; C1776; J0360; J1100; J1170; J2405; J2704; J3010; J3370; J3490; J7050; J7620; Q0169; U0002

== ENCOUNTER 2022-06-19 16:23 | Outpatient (CLI) | payer MEDICARE, BC ==
[2022-06-19 17:12] LABS: Hemoglobin 12.4 g/dL (12.0-15.5); Mean Corpuscular HGB CONC 32.6 g/dL (32.0-36.0); Mean Corpuscular Volume 82.6 fl (81.6-98.3); Mean Platelet Volume 9.6 fl (7.4-10.4); Platelet Count 382 10x3/uL (150-450); RBC Distribution Width 13.8 % (11.5-14.5); White Blood Cell (WBC) Count 9.2 10x3/uL (3.5-10.5)
[2022-06-19 17:19] LABS: Anion Gap 14 mmol/L (10-20); BUN (Urea Nitrogen) 24 mg/dL (9.8-20.1); Calc. Creatinine Clearance 0 mL/min (70-130); Carbon Dioxide 26 mmol/L (23-31); Chloride 106 mmol/L (98-107); Estimated GFR 75; Glucose 121 mg/dL (80-115); Potassium 4.2 mmol/L (3.5-5.1); Sodium 142 mmol/L (136-145)
== END 2022-06-19 16:24 | disposition home or self-care (01) ==
LOC: LABBT 16:23
PROVIDERS: ATTEND Neurological Surgery
DX: Z01.812 Encounter for preprocedural laboratory examination (principal); M48.062 Spinal stenosis, lumbar region with neurogenic claudication
CPT/HCPCS: 80048; 85027

== ENCOUNTER 2022-07-17 10:00 | Outpatient (CLI) | payer MEDICARE, BC | END 2022-07-17 10:01 | disposition home or self-care (01) | LOC: TBSIIMAG 10:00 | PROVIDERS: ATTEND Neurological Surgery | DX: M48.062 Spinal stenosis, lumbar region with neurogenic claudication (principal); M47.816 Spondylosis without myelopathy or radiculopathy, lumbar region; M43.17 Spondylolisthesis, lumbosacral region; Z98.890 Other specified postprocedural states | CPT/HCPCS: 72120 ==